=== PATIENT | female | born 1945 | race Caucasian/White ===

== ENCOUNTER 2017-08-05 07:26 | Inpatient (IN) | payer MEDICARE, OTHER ==
--- NOTE | 2017-08-05 07:38 | EDPHY ---
H & P Stated Complaint: R lower quad pain since last night, bloated Time Seen by Provider: 08/05/17 07:38 HPI/ROS: CHIEF COMPLAINT: Abdominal pain HISTORY OF PRESENT ILLNESS: This is a generally healthy 71-year-old female, former professional dancer, who presents with 24 hr of right lower quadrant abdominal pain. She has not had fever, nausea vomiting, diarrhea, dysuria, or hematuria. She does not have back pain. The pain has been "excruciating"and constant. It has not changed in location. Prior to the onset of this pain she had some generalized malaise. REVIEW OF SYSTEMS: A ten point review of systems was performed and is negative with the exception of the items mentioned in the HPI. 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 She does not use tobacco products or alcohol. She is new to this area and does not have a primary care physician. She moved here from [place], [place]. General Appearance: Alert. Vital signs reviewed. Eyes: Pupils equal and round, no conjunctival injection, no discharge. Anicteric. ENT, Mouth: Mucous membranes are moist, no oropharyngeal erythema or edema. Neck: No lymphadenopathy, supple. Respiratory: Lungs are clear to auscultation; no wheezes, rales, or rhonchi. Cardiovascular: Regular rate and rhythm; no murmur, rub, or gallop. Gastrointestinal: Abdomen is soft with RLQ tenderness and localized guarding, no masses or organomegaly, bowel sounds normal. Skin: Warm and dry, no rashes on exposed skin, normal color. Back: Nontender to palpation over the thoracolumbar spine. No CVAT. Extremities: No lower extremity edema, no calf tenderness or swelling. Neurological: Alert and oriented. Moving all four extremities easily and equally. Psychiatric: Normal affect. - Medical/Surgical History Hx Asthma: No Hx Chronic Respiratory Disease: No Hx Diabetes: No Hx Cardiac Disease: No Hx Renal Disease: No Hx Cirrhosis: No Hx Alcoholism: No Hx HIV/AIDS: No Hx Splenectomy or Spleen Trauma: No Other PMH: hypothyroid - Social History Smoking Status: Never smoked Constitutional: Initial Vital Signs Temperature (C) 36.4 C 08/05/17 07:27 Heart Rate 67 08/05/17 07:27 Respiratory Rate 16 08/05/17 07:27 Blood Pressure 120/74 08/05/17 07:27 O2 Sat (%) 97 08/05/17 07:27 O2 Delivery Mode Room Air Allergies/Adverse Reactions: ampicillin Allergy (Verified 08/05/17 07:51) Medical Decision Making - Diagnostics Imaging Results: Imaging Impressions Abdomen CT 08/05/17 08:18 Impression: 1. Acute appendicitis with appendicolith, thickening up to 15 mm and periappendiceal inflammatory changes right mid abdomen. 2. No drainable abscess, bowel obstruction, or pneumoperitoneum. 3. Two subcentimeter hepatic hypodensities, indeterminate, for which follow up is recommended. 4. Severe degenerative lumbar spine resulting in moderate to severe stenosis at L1-L2, L3-L4, and L4-L5 levels with old mild benign compression fracture of the L4 vertebral body. Consider DEXA bone scan evaluation and MRI of the lumbar spine if clinically indicated. 5. Small hiatal hernia. Findings and recommendations discussed with Emergency Department physician, Kianna Montana, at 0854 hours, 08/05/2017. Final report concurs with initial preliminary interpretation. ED Course/Re-evaluation: Based upon the location of her pain, I suspect appendicitis. I spoke with Dr. Bethany Carrera and will proceed with CT scan of the abdomen/pelvis. Kidney function is being checked along with CBC and urinalysis. This patient had a couple sips of water about 6:00 a.m. this morning, 2 hr ago, nothing overnight. She has declined pain medication. On reexamination she continues with right low lower quadrant tenderness, guarding. I reviewed her CT scan and discussed it with Dr. Maria. CT scan of the abdomen /pelvis is positive for appendicitis. Dr. Bethany Carrera in the ED at 8:55 AM to examine the patient prior to surgery. Ceftriaxone and Flagyl IV ordered. Differential Diagnosis: Abdominal pain including but not limited to appendicitis, cholecystitis, gastritis and urinary tract infection. - Data Points Laboratory Results: Laboratory Results 08/05/17 07:40 08/05/17 07:40 08/05/17 08/05/17 08/05/17 08:50 08:14 07:40 WBC RBC Hgb POC Hgb 13.6 gm/dL gm/dL (12.6-16.3) Hct POC Hct 40 % % (38-47) MCV MCH MCHC RDW Plt Count MPV Neut % (Auto) Lymph % (Auto) [place] % (Auto) Eos % (Auto) Baso % (Auto) Nucleat RBC Rel Count Absolute Neuts (auto) Absolute Lymphs (auto) Absolute Monos (auto) Absolute Eos (auto) Absolute Basos (auto) Absolute Nucleated RBC Immature Gran % Immature Gran # POC Sodium 137 mEq/L mEq/L (135-145) Sodium 138 mEq/L mEq/L (135-145) POC Potassium 3.5 mEq/L mEq/L (3.3-5.0) Potassium 3.9 mEq/L mEq/L (3.5-5.2) POC Chloride 99 mEq/L mEq/L (97-110) Chloride 101 mEq/L mEq/L (97-110) Carbon Dioxide 24 mEq/l mEq/l (22-31) Anion Gap 13 mEq/L mEq/L (8-16) POC BUN 8 mg/dL mg/dL (7-23) BUN 10 mg/dL mg/dL (7-23) Creatinine 0.5 mg/dL L mg/dL (0.6-1.0) POC Creatinine 0.5 mg/dL L mg/dL (0.6-1.0) Estimated GFR > 60 Glucose 131 mg/dL H mg/dL (70-100) POC Glucose 137 mg/dL H mg/dL (70-100) Calcium 9.4 mg/dL mg/dL (8.5-10.4) Urine Color YELLOW Urine Appearance CLEAR Urine pH 6.0 (5.0-7.5) Ur Specific Altha 1.035 H (1.002-1.030) Urine Protein NEGATIVE (NEGATIVE) Urine Ketones NEGATIVE (NEGATIVE) Urine Blood 2+ H (NEGATIVE) Urine Nitrate NEGATIVE (NEGATIVE) Urine Bilirubin NEGATIVE (NEGATIVE) Urine Urobilinogen NEGATIVE EU EU (0.2-1.0) Ur Leukocyte Esterase NEGATIVE (NEGATIVE) Urine RBC 1-3 /hpf /hpf (0-3) Urine WBC 1-3 /hpf /hpf (0-3) Ur Epithelial Cells TRACE /lpf /lpf (NONE-1+) Urine Glucose NEGATIVE (NEGATIVE) 08/05/17 07:40 WBC 16.62 10^3/uL H 10^3/uL (3.80-9.50) RBC 4.74 10^6/uL 10^6/uL (4.18-5.33) Hgb 13.9 g/dL g/dL (12.6-16.3) POC Hgb Hct 41.3 % % (38.0-47.0) POC Hct MCV 87.1 fL fL (81.5-99.8) MCH 29.3 pg pg (27.9-34.1) MCHC 33.7 g/dL g/dL (32.4-36.7) RDW 13.0 % % (11.5-15.2) Plt Count 337 10^3/uL 10^3/uL (150-400) MPV 10.6 fL fL (8.7-11.7) Neut % (Auto) 86.6 % H % (39.3-74.2) Lymph % (Auto) 8.2 % L % (15.0-45.0) [place] % (Auto) 4.4 % L % (4.5-13.0) Eos % (Auto) 0.2 % L % (0.6-7.6) Baso % (Auto) 0.2 % L % (0.3-1.7) Nucleat RBC Rel Count 0.0 % % (0.0-0.2) Absolute Neuts (auto) 14.38 10^3/uL H 10^3/uL (1.70-6.50) Absolute Lymphs (auto) 1.37 10^3/uL 10^3/uL (1.00-3.00) Absolute Monos (auto) 0.73 10^3/uL 10^3/uL (0.30-0.80) Absolute Eos (auto) 0.04 10^3/uL 10^3/uL (0.03-0.40) Absolute Basos (auto) 0.04 10^3/uL 10^3/uL (0.02-0.10) Absolute Nucleated RBC 0.00 10^3/uL 10^3/uL (0-0.01) Immature Gran % 0.4 % % (0.0-1.1) Immature Gran # 0.06 10^3/uL 10^3/uL (0.00-0.10) POC Sodium Sodium POC Potassium Potassium POC Chloride Chloride Carbon Dioxide Anion Gap POC BUN BUN Creatinine POC Creatinine Estimated GFR Glucose POC Glucose Calcium Urine Color Urine Appearance Urine pH Ur Specific Altha Urine Protein Urine Ketones Urine Blood Urine Nitrate Urine Bilirubin Urine Urobilinogen Ur Leukocyte Esterase Urine RBC Urine WBC Ur Epithelial Cells Urine Glucose Medications Given: Discontinued Medications Sodium Chloride (Ns) 1,000 mls @ 0 mls/hr IV ONCE ONE PRN Reason: Wide Open Stop: 08/05/17 08:47 Last Admin: 08/05/17 08:49 Dose: 1,000 mls Ceftriaxone Sodium/Dextrose (Rocephin 1 Gm (Premix)) 50 mls @ 100 mls/hr IV EDNOW ONE PRN Reason: Protocol Stop: 08/05/17 09:23 Last Admin: 08/05/17 09:03 Dose: 50 mls Point of Care Test Results: 08/05/17 08:14 POC Sodium 137 POC Potassium 3.5 POC Chloride 99 POC BUN 8 POC Creatinine 0.5 L POC Glucose 137 H Departure - Departure Disposition: To OP Cath/Surgery Clinical Impression: Acute appendicitis Qualifiers: Acute appendicitis type: with localized peritonitis Qualified Code(s): K35.3 - Acute appendicitis with localized peritonitis Condition: Good
[2017-08-05 08:01] LABS: PLATELET COUNT 337 10^3/uL (150-400)
[2017-08-05] MEDS ORDERED: IOPAMIDOL (ISOVUE-300) 100 ML BTL ONE (08:19)
[2017-08-05] MEDS ORDERED: NS 1,000 ML IV ONE (08:46)
[2017-08-05] MEDS ORDERED: BUPIVACAINE 0.5% 30 ML SDV ONE (09:44)
--- NOTE | 2017-08-05 09:45 | GHP ---
[f rep st] HISTORY AND PHYSICAL DATE OF ADMISSION: 08/05/2017 CHIEF COMPLAINT: Acute appendicitis. HISTORY OF PRESENT ILLNESS: 71-year-old woman who presented with 24 hours of right lower quadrant pa in. She has not ever had this type of pain before. She denies fever, nausea, vomiting, diarrhea. S he has no sick contacts. She has also felt bloated. Due to her escalating symptoms, she presented t o the emergency room. PAST MEDICAL HISTORY: Hypothyroidism. PAST SURGICAL HISTORY: Traumatic injury to right foot requiring toe amputation. 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 She denies any tobacco products. FAMILY HISTORY: Noncontributory. REVIEW OF SYSTEMS: 10-point review of systems negative except per HPI. PHYSICAL EXAMINATION: VITAL SIGNS: 36.4, 67, 120/74, 16, 97%. GENERAL: Pleasant, well-nourished, we ll-groomed woman sitting up on bed. HEENT: Normocephalic. No gross hearing deficits. Mucous membra nan moist. Pupils equal and round. No scleral icterus. LUNGS: Clear to auscultation bilaterally. No increased work of breathing. CARDIAC: Regular rate. No peripheral edema. ABDOMEN: It is warm to t he touch. Bowel sounds are present. She is soft. She is tender on the right side of her abdomen. SK IN: Warm and dry. No rashes, PSYCHIATRIC: Mood and affect normal. NEUROLOGIC: Grossly intact. LABORATORY: Results reviewed. Her white blood cell count is 16.62. Her creatinine is within normal limits. IMAGING: She had a CT scan performed which showed acute appendicitis. IMPRESSION AND PLAN: 71-year-old woman with acute appendicitis. I will take her to the operating geno for a laparoscopic appendectomy. The risks and benefits including but not limited to, stroke, hear t attack, , blood clots, infection, bleeding were discussed. I offered admission versus dischar ge home if she would find someone to stay with her, and she would like to be discharged home. She un derstands that she will not be able to participate in her usual physical activities for 2 weeks. She is going on a meditation retreat next week, also which she will unlikely be able to attend. I imagin e her diet will be limited for a few days. She will find someone to help walk her dogs. /[id number]/MODL
--- NOTE | 2017-08-05 09:49 | PDANEPAE ---
ANE History of Present Illness 71 yo female with appendicitis, abdominal pain since yesterday. ANE Past Medical History - Cardiovascular History Hx Hypertension: No Hx Arrhythmias: No - Pulmonary History Hx COPD: No Hx Asthma/Reactive Airway Disease: No Hx Oxygen in Use at Home: No - Endocrine History Hx Diabetes: No Hypothyroid: Yes Obesity: no - Renal History Hx Renal Disorders: No - Liver History Hx Hepatic Disorders: No - Neurological & Psychiatric Hx Neurological / Psychiatric History Comment: dizzy spells with sudden change in position occassionally, never seen a doctor for them - no syncope with them. Probably orthostatic hypotension. - GI History Hx Gastrointestinal Disorders: No ANE Review of Systems Review of Systems: - Systems Cardiac: Reports: lightheadedness (sometimes occurs when standing from a seated position) ANE Patient History - Allergies Allergies/Adverse Reactions: ampicillin Allergy (Verified 08/05/17 07:51) - NPO status NPO Since - Liquids (Date): 08/05/17 NPO Since - Liquids (Time): 06:00 NPO Since - Solids (Date): 08/04/17 NPO Since - Solids (Time): 18:00 - Anes Hx Anes Hx: post operative nausea - Smoking Hx Smoking Status: Never smoked Marijuana use: No - Alcohol Use Alcohol Use: None - Family Anes Hx Family Anes Hx: neg - N/A ANE Labs/Vital Signs - Labs Result Diagrams: 08/05/17 07:40 08/05/17 07:40 - Vital Signs Blood Pressure: 129/69 Heart Rate: 68 Respiratory Rate: 14 O2 Sat (%): 98 Height: 160.02 cm Weight: 58.967 kg ANE Physical Exam - Airway Mallampati Score: Class 4 - Pulmonary Pulmonary: no respiratory distress - Cardiovascular Cardiovascular: regular rate and rhythym - ASA Status ASA Status: II, E ANE Anesthesia Plan Anesthesia Plan: general endotracheal anesthesia
[2017-08-05] MEDS ORDERED: LR 1,000 ML IV ONE (09:57)
[2017-08-05] MEDS ORDERED: fentaNYL 100 MCG/2 ML INJ ONE (10:11)
[2017-08-05] MEDS ORDERED: DEXAMETHASONE 4 MG/ML VIAL ONE (10:11)
[2017-08-05] MEDS ORDERED: ROCURONIUM 50 MG/5 ML VIAL ONE (10:11)
[2017-08-05] MEDS ORDERED: LIDOCAINE 2% 100 MG/5 ML SYR ONE (10:11)
[2017-08-05] MEDS ORDERED: PROPOFOL/EMULSION 500 MG/50 ML BOTTLE IV ONE (10:12)
[2017-08-05] MEDS ORDERED: ONDANSETRON 4 MG/2 ML VIAL ONE (10:30)
[2017-08-05] MEDS ORDERED: KETOROLAC 30 MG/1 ML SDV ONE (10:30)
[2017-08-05] MEDS ORDERED: SUGAMMADEX SODIUM 200 MG/2 ML VIAL IVP ONE (11:06)
[2017-08-05] MEDS ORDERED: NALOXONE HCL 0.4 MG/ML INJ IVP PRN (11:13)
[2017-08-05] MEDS ORDERED: fentaNYL 100 MCG/2 ML INJ IVP PRN (11:13)
[2017-08-05] MEDS ORDERED: PROMETHAZINE HCL 25 MG/ML INJ IVP PRN (11:13)
[2017-08-05] MEDS ORDERED: DIAZEPAM 5 MG/ML 1 ML SYR IVP PRN (11:13)
[2017-08-05] MEDS ORDERED: ALBUTEROL 3 ML DEYVIAL IH PRN (11:13)
[2017-08-05] MEDS ORDERED: ACETAMINOPHEN 500 MG TAB PO PRN (11:13)
[2017-08-05] MEDS ORDERED: oxyCODONE IR 5 MG TAB PO PRN ×2 (11:13→11:25)
[2017-08-05] MEDS ORDERED: LR 500 ML IV PRN (11:13)
--- NOTE | 2017-08-05 11:24 | POSTOPPROG ---
Post Op Note Date of Operation: 08/05/17 Surgeon: Bethany Carrera Anesthesiologist: yvette Anesthesia: GET(General Endotracheal) Pre-op Diagnosis: acute appendicitis Post-op Diagnosis: perf cecum Indication: 71 yo with abdominal pain Procedure: lap cecectomy Findings: perforation at cecum just proximal to terminal ileum Inf/Abcess present in the surg proc area at time of surgery?: Yes Depth: Organ Space EBL: Minimal Drains: Lj Telles Specimen(s): appendix and part of cecum
[2017-08-05] MEDS ORDERED: ONDANSETRON 4 MG/2 ML VIAL IVP PRN (11:26)
--- NOTE | 2017-08-05 11:37 | POSTANESTH ---
Post Anesthetic Evaluation Cardiovascular Status: Normal, Stable Respiratory Status: Normal, Stable Level of Consciousness/Mental Status: Moderately Sleepy Pain Control: Adequate, Prn Tx Ordered Nausea/Vomiting Control: Adequate, Prn Tx Ordered Complications Possibly Related to Anesthesia: None Noted
--- NOTE | 2017-08-05 12:03 | POSTANESTH ---
Post Anesthetic Evaluation Cardiovascular Status: Normal, Stable Respiratory Status: Normal, Stable Level of Consciousness/Mental Status: Can Participate in Eval, Alert and Oriented Pain Control: Adequate, Prn Tx Ordered Nausea/Vomiting Control: Adequate, Prn Tx Ordered Complications Possibly Related to Anesthesia: None Noted
[2017-08-05] MEDS ORDERED: DIAZEPAM 5 MG/ML 1 ML SYR ONE (12:07)
[2017-08-05] MEDS: D5W 1/2 NS W/ 20 KCl/L 1,000 ML IV SCH (13:39)
[2017-08-05] MEDS: IBUPROFEN 600 MG TAB PO PRN ×2 (17:04→23:18)
--- NOTE | 2017-08-05 19:58 | GOP ---
[f rep st] OPERATIVE REPORT DATE OF OPERATION: 08/05/2017 SURGEON: Bethany Carrera MD ANESTHESIA: General. ANESTHESIOLOGIST: Sarika Hough MD PREOPERATIVE DIAGNOSIS: Acute appendicitis. POSTOPERATIVE DIAGNOSIS: Perforated cecum. PROCEDURE PERFORMED: Partial cecectomy. FINDINGS: Perforation at the cecal-appendiceal junction. SPECIMENS: Proximal cecum and appendix. ESTIMATED BLOOD LOSS: 10 cc. INDICATIONS: Karie Silva is a 71-year-old who presented with acute onset abdominal pain. She had CT scan performed that showed acute appendicitis; her white count was 16,000. DESCRIPTION OF PROCEDURE: Patient was brought into the operating room, placed supine on the table, a nd general anesthesia was administered. Her abdomen was prepped and draped in the usual sterile fash ion. I infiltrated all sites with 0.5% Marcaine prior to making incisions. I elevated her umbilicus . I made a small incision. I inserted the Veress needle. Her abdomen insufflated easily to a press ure of 15 mmHg. I placed a 5 mm trocar with a camera at this site. There were no injuries from Tiana ss needle placement. Under direct vision, I placed a 5 mm suprapubic trocar and a 10 mm trocar in th e left lower abdomen. There was omentum overlying the right abdominal sidewall. I used the Harmonic to dissect this. I identified her right colon and followed it down where it met the cecum, and in a n area that was inflamed, I observed purulent material and could see a perforation at the cecal-appen diceal junction. I performed dissection along the white line of Toldt. I dissected the appendix desi e, including the mesoappendix with the Harmonic Scalpel. I identified the terminal ileum and was abl e to protect this from harm I could identify a spot on the cecum that was just distal to the perforat ion. I used an Endo ERIC 45 blue twice to come across the base of the cecum. Hemostasis was achieved at the staple line. The proximal cecum and appendix were placed in an EndoCatch bag. They were ret rieved via the 10 mm trocar. I performed suction irrigation. I then placed a 15 round silicone drai n by the cecum. I sutured this into place with 3-0 nylon. I closed the fascia at the 10 mm trocar s ite with 0 Vicryl, closed skin with 4-0 Monocryl, Dermabond applied. She was awakened in the operati ng room, extubated, transferred to PACU in stable condition. /[id number]/MODL
[2017-08-05] MEDS: ACETAMINOPHEN 325 MG TAB PO PRN (21:31)
[2017-08-06] MEDS: IBUPROFEN 600 MG TAB PO PRN ×3 (05:14→20:02)
[2017-08-06 05:44] LABS: PLATELET COUNT 347 10^3/uL (150-400)
[2017-08-06] MEDS: D5W 1/2 NS W/ 20 KCl/L 1,000 ML IV SCH (06:36)
--- NOTE | 2017-08-06 09:05 | SOAPPROG ---
SOAP Progress Note Assessment/Plan: Assessment/Plan: 71yo F POD#1 s/p lap appy for perforated appendicitis Pain controlled without Rx IV antibiotics HERNNADEZ to suction Recheck labs tomorrow Passing flatus. Advance to regular diet Needs airline excuse Dispo: continue inpatient for IV antibiotics, pain control, obs. Seen c Dr. zaidi S: LUE uncomfortable from IV infiltration. passing small amounts of gas. Pain controlled but uncomfortable generally O: sitting in chair, comfortable, NAD LUE IV infiltrated, swollen, IV removed +BS. distended, soft, incisions CDI HERNANDEZ purulent/sanguinous fluid 08/06/17 10:44 Objective: Vital Signs Temp Pulse Resp BP Pulse Ox 36.8 C 61 17 104/55 L 90 L 08/06/17 08:00 08/06/17 08:00 08/06/17 08:00 08/06/17 08:00 08/06/17 08:00 Microbiology 08/05/17 10:52 Gram Stain - Final Other - Other Laboratory Results 08/06/17 05:30 08/05/17 08/06/17 08/07/17 05:59 05:59 05:59 Intake Total 2220 1225 Output Total 1860 Balance 360 1225 ICD10 Worksheet Patient Problems: Problems Problem Status Onset Acute appendicitis Acute
[2017-08-06] MEDS: LIOTHYRONINE SODIUM 5 MCG TAB PO SCH (09:18)
[2017-08-06] MEDS: LEVOTHYROXINE 75 MCG TAB PO SCH (09:21)
--- NOTE | 2017-08-06 15:09 | PDMN ---
Medical Necessity Medical necessity: [facility] [place]: S235 bowel surgery, colectomy, partial with or without ostomy, by Lap. 3 days: Lap cecectomy - perforation at cecum just proximal of terminal ileum with washout and drain placement
[2017-08-06] MEDS: ACETAMINOPHEN 325 MG TAB PO PRN (17:36)
[2017-08-07] MEDS: IBUPROFEN 600 MG TAB PO PRN ×4 (02:04→21:02)
[2017-08-07] MEDS: LEVOTHYROXINE 75 MCG TAB PO SCH (05:48)
[2017-08-07 06:32] LABS: PLATELET COUNT 288 10^3/uL (150-400)
[2017-08-07] MEDS: LIOTHYRONINE SODIUM 5 MCG TAB PO SCH (09:13)
[2017-08-08] MEDS: IBUPROFEN 600 MG TAB PO PRN ×2 (02:56→11:38)
[2017-08-08] MEDS: LEVOTHYROXINE 75 MCG TAB PO SCH (05:44)
[2017-08-08 06:09] LABS: PLATELET COUNT 295 10^3/uL (150-400)
--- NOTE | 2017-08-08 09:16 | SOAPPROG ---
SOAP Progress Note Assessment/Plan: Assessment: s/p perforation at cecal/appendiceal junction Improved today Bored Will consult ID to see outpatient recs Likely keep drain about 1 week S: Feeling better. Tolerating small amounts of food CTAB RRR Abdomen softer, still distended, HERNANDEZ recently emptied but clear in tubing Incisions cdi Plan: 08/08/17 09:15 Objective: Vital Signs Temp Pulse Resp BP Pulse Ox 36.9 C 87 18 98/64 L 90 L 08/08/17 03:00 08/08/17 03:00 08/08/17 03:00 08/08/17 03:00 08/08/17 03:00 Microbiology 08/05/17 10:52 Gram Stain - Final Other - Other Laboratory Results 08/08/17 05:55 08/07/17 08/08/17 08/09/17 05:59 05:59 05:59 Intake Total 3135 Output Total 1655 5 58 Balance 1480 -5 -58 ICD10 Worksheet Patient Problems: Problems Problem Status Onset Acute appendicitis Acute
--- NOTE | 2017-08-08 09:35 | SOAPPROG ---
SOAP Progress Note Assessment/Plan: Assessment/Plan: 71yo F POD#3 s/p lap appy for perforated appendicitis Pain controlled without Rx IV antibiotics - transition to PO on discharge. Appreciate ID recs HERNANDEZ to suction - will keep x 1 week Return of bowel function Regular diet Needs airline excuse Dispo: DC with HERNANDEZ drain and PO antibiotics. FU Friday for drain removal. Seen c Dr. Carrera S: Bored. Very anxious to be discharged today O: sitting in chair, comfortable, NAD +BS. less distended, soft, incisions CDI, min surrounding ecchymosis. HERNANDEZ serosanguinous fluid, not purulent Objective: Vital Signs Temp Pulse Resp BP Pulse Ox 36.9 C 87 18 98/64 L 90 L 08/08/17 03:00 08/08/17 03:00 08/08/17 03:00 08/08/17 03:00 08/08/17 03:00 Microbiology 08/05/17 10:52 Gram Stain - Final Other - Other Laboratory Results 08/08/17 05:55 08/07/17 08/08/17 08/09/17 05:59 05:59 05:59 Intake Total 3135 Output Total 1655 5 58 Balance 1480 -5 -58 ICD10 Worksheet Patient Problems: Problems Problem Status Onset Acute appendicitis Acute
[2017-08-08] MEDS: LIOTHYRONINE SODIUM 5 MCG TAB PO SCH (09:41)
--- NOTE | 2017-08-08 10:02 | GDS ---
[f rep st] DISCHARGE SUMMARY PRIMARY DIAGNOSIS: Ruptured appendicitis. SECONDARY DIAGNOSIS: Hypothyroidism. REASON FOR ADMISSION: The patient is a 71-year-old woman who presented to the emergency room complai roldan of less than 24 hours of localized right lower quadrant pain. She had a CT scan performed in [facility] emergency room, which showed acute appendicitis with an appendicolith and periappendiceal inflammat ion. She was admitted for surgical intervention, pain control, and observation. HOSPITAL COURSE: She was taken to the operating room by Dr. Bethany Carrera on 08/05/2017. At the time of surgery, her appendix was found to be ruptured at the cecum. Her final procedure was a laparoscop ic cecectomy with appendectomy. She had a HERNANDEZ drain placed. She was continued on IV antibiotics post operatively of ceftriaxone and Flagyl. Final pathology from the surgery revealed acute appendicitis with perforation; no malignancy. On postoperative day #3, the patient had received 3 days of IV anti biotics. Her pain was controlled without prescription pain medication. She was tolerating regular d iet, had full return of bowel function, and was ambulating independently. She was seen by Infectious Disease on postoperative day #3 who gave recommendations for outpatient oral antibiotic therapy. kofi was ready for discharge. CONDITION: She is being discharged home in stable condition. Pain is controlled with oral pain medi cation, tolerating regular diet, and ambulating independently. DISCHARGE MEDICATIONS: She was sent home with prescriptions for Levaquin and Flagyl. She was instru cted to resume home medicines; please see EMR for further detail. DISCHARGE INSTRUCTIONS AND FOLLOWUP: She will follow up with Elda Rocha PA-C , on Friday for in removal. She will empty and record HERNANDEZ drain output daily. She may shower. She will avoid heavy lifting, pushing, or pulling greater than 10 pounds for 2 weeks. She understands to call with any wo rsening symptoms, questions, or concerns. /[id number]/MODL
[2017-08-08 10:34] VITALS: BP 106/74
--- NOTE | 2017-08-09 10:08 | GCON ---
[f rep st] CONSULTATION LATE ENTRY INPATIENT INFECTIOUS DISEASE CONSULT DATE OF CONSULTATION: 08/08/2017 REFERRING PHYSICIAN: Bethany Carrera MD REASON FOR REFERRAL: Appendicitis with rupture. HISTORY OF PRESENT ILLNESS: Patient is a 71-year-old female, who presented to [facility] on 08/05/2017, complaining of some diffuse abdominal pain. This pain did tend to t he right side. The pain has increased over the preceding 24 hours. She was evaluated with an abdomi nal pelvic CT, which confirmed diagnosis of appendicitis. Patient was taken the same day to the [facility] ating room, where Dr. Lakhani removed the appendix, and discovered a perforation at the cecal appendice al junction. She also performed a partial cecectomy. The patient was managed on IV ceftriaxone and Flagyl. She had no difficulties with these medications. We are consulted to help [facility]. Currently, the patient is feeling very well. She is up and moving around her room. She is dressed in street clothes. She denies any fevers or chills. She notes that this is o ne of the few times in her life she has ever been in the hospital. PAST MEDICAL HISTORY: Hypothyroidism. PAST SURGICAL HISTORY: 1. As above. 2. Toe amputation, right foot, following a traumatic injury. ANTIBIOTICS: 1. Ceftriaxone. 2. Flagyl. ALLERGIES: Patient is allergic to ampicillin. SOCIAL HISTORY: The patient teaches ballet, tiffanie chi and yoga. No significant tobacco, alcohol, or d rug use noted. FAMILY HISTORY: Noncontributory. REVIEW OF SYSTEMS: Except for that detailed above in history of present illness, comprehensive 10-sy stem review is negative. PHYSICAL EXAMINATION: VITAL SIGNS: Temperature maximum is 36.9, temperature current is 36.4, heart rate is 77, respiratory rate is 14, blood pressure is 102/59. GENERAL: The patient is a well-formed , well-nourished, older female, in no acute distress. She is not toxic in appearance. She is alert and oriented x3. She has a pleasant demeanor. HEENT: Normocephalic for age. Atraumatic. No scler al icterus. No drainage from the nares. Eyes, lids and conjunctivae are within normal limits. Pupils are equal and round bilaterally. NECK: Supple. No meningismus. LUNGS: Clear to auscultation bilaterally, with good effort. HEART: Reg ular rate and rhythm. No significant peripheral edema. SKIN: Warm and dry to the touch. No rash o r lesion noted. MUSCULOSKELETAL: No muscle belly tenderness is noted. No joint line effusion or ar thritis is seen. NEURO: Cranial nerves 2-12 seem to be intact. Peripheral sensation seems intact i n extremities. LABORATORY DATA: The patient has a CBC dated 08/08/2017, shows a white blood cell count of 11.8, hem oglobin of 12.3, hematocrit 37.9, and a platelet count of 295. Differential is left-shifted with 89% segmented neutrophils. Serum chemistries on 08/05/2017, show sodium of 138, potassium 3.9, chloride of 101, bicarbonate 24, BUN of 10, and creatinine of 0.5. MICROBIOLOGIC DATA: Patient has operative samples from the appendix and cecal area from 08/05/2017, which are growing 2 isolates, Pseudomonas species, which is pansensitive to typical antipseudomonal d rugs, and E coli which is pansensitive to all drugs tested. ASSESSMENT: Ruptured appendicitis, status post appendectomy with partial cecectomy. The patient marzena ears to be clinically recovering quite rapidly. She tolerated the ceftriaxone and Flagyl. Given the sensitivity panel of both the Pseudomonas and the E coli, the patient could transfer to 750 mg of Le vaquin orally a day, with 500 mg orally 3 times a day. I think a total duration of treatment will be 10 days. PLAN: 1. Antibiotics for home, as above. 2. Follow up as needed. /[id number]/MODL
== END 2017-08-08 12:00 | disposition home or self-care (01) | DRG 340 ==
LOC: OBSVTOIN 09:01 → FOB 13:15
PROVIDERS: ADMIT Surgery; ATTEND Surgery
PROC: 0DTJ4ZZ Resection of Appendix, Percutaneous Endoscopic Approach (ICD-10-PCS; principal; 2017-08-05 10:15)
DX: K35.2 Acute appendicitis with generalized peritonitis (principal); E03.9 Hypothyroidism, unspecified; M51.36 Other intervertebral disc degeneration, lumbar region; Z89.429 Acquired absence of other toe(s), unspecified side; Z87.81 Personal history of (healed) traumatic fracture
CPT/HCPCS: 82947-QW; 96365; G0378; J0696; J1100; J1885; J2001; J2270; J2405; J2704; J3010; J3360; Q9967

== ENCOUNTER 2017-08-10 00:50 | Inpatient (IN) | payer OTHER ==
[2017-08-10] MEDS ORDERED: NS 1,000 ML IV ONE (01:26)
[2017-08-10] MEDS ORDERED: ONDANSETRON 4 MG/2 ML VIAL IVP ONE (01:26)
[2017-08-10] MEDS ORDERED: FAMOTIDINE 20 MG/NACL 50 ML IV ONE (01:26)
--- NOTE | 2017-08-10 01:31 | EDPHY ---
H & P Stated Complaint: srg - ruptured cecum 5.1, c/o bloat/n/v/d sat, bloody emesis, increase o/p Time Seen by Provider: 08/10/17 01:05 HPI/ROS: HPI The patient presents with vomiting, abdominal distension for the last 1 day which is getting progressively worse. She is postoperative day 6. From laparoscopic appendectomy and partial cecectomy for ruptured appendicitis at the cecal appendiceal junction performed by Dr. Carrera. She left the hospital approximately 36 hr ago and felt well upon discharge. Last night she said she began to feel worse. She is taking ibuprofen every 6 hr for pain and feels that her pain is minimal. She did notice that her abdomen is more distended than usual. Since 2:00 p.m. She has had vomiting which is slightly blood tinged. She has no appetite and has been unable to take anything by mouth. She is having loose bowel movements though her last stool was firm. She has a HERNANDEZ drain in place which is draining a small amount of serous fluid. REVIEW OF SYSTEMS Constitutional: No fever, no chills. Eyes: No discharge. ENT: No sore throat. Cardiovascular: No chest pain, no palpitations. Respiratory: No cough, no shortness of breath. Gastrointestinal: No abdominal pain, no vomiting. Genitourinary: No hematuria. Musculoskeletal: No back pain. Skin: No rashes. Neurological: No headache. PMHx: As above, history of right toe amputation Soc Hx: Recently moved to [place] after living in [place] for 20 years PHYSICAL General Appearance: Alert, no distress Eyes: Pupils equal and round no pallor or injection ENT, Mouth: Mucous membranes dry Respiratory: There are no retractions, lungs are clear to auscultation Cardiovascular: Regular rate and rhythm Gastrointestinal: Abdomen is distended and mildly tender in all quadrants without rebound or guarding, HERNANDEZ drain is in place draining clear fluid Neurological: A&O, moves all extremities Skin: Warm and dry, no rashes Musculoskeletal: Neck is supple non tender Extremities: symmetrical, full range of motion Psychiatric: Patient is oriented X 3, there is no agitation Source: Patient Exam Limitations: No limitations - Medical/Surgical History Hx Asthma: No Hx Chronic Respiratory Disease: No Hx Diabetes: No Hx Cardiac Disease: No Hx Renal Disease: No Hx Cirrhosis: No Hx Alcoholism: No Hx HIV/AIDS: No Hx Splenectomy or Spleen Trauma: No Other PMH: hypothyroid, traumatic amp of toes R foot, ruptured cecum - surg 5..18 - Social History Smoking Status: Never smoked Constitutional: Initial Vital Signs Temperature (C) 37 C 08/10/17 00:54 Heart Rate 98 08/10/17 00:54 Respiratory Rate 18 08/10/17 00:54 Blood Pressure 131/97 H 08/10/17 00:54 O2 Sat (%) 93 08/10/17 00:54 O2 Delivery Mode Room Air O2 (L/minute) 2 Allergies/Adverse Reactions: ampicillin Allergy (Verified 08/10/17 01:02) Vomiting Home Medications: Medication Instructions Recorded Herbals/Supplements -Info Only 1 ea PO DAILY 08/05/17 Levothyroxine [Synthroid 75 mcg 75 mcg PO DAILY06 08/05/17 (*)] Liothyronine Sodium [Cytomel 5 mcg 5 mcg PO DAILY 08/05/17 (*)] Acetaminophen [Tylenol 325mg (*)] 650 mg PO Q4HRS PRN tab 08/08/17 Ibuprofen [Motrin (*)] 600 mg PO Q6HRS PRN tab 08/08/17 levOFLOXACIN [levAQUIN (*)] 750 mg PO DAILY 7 Days tab 08/08/17 metroNIDAZOLE [Flagyl 500 mg (*)] 500 mg PO TID 7 Days tab 08/08/17 Medical Decision Making - Diagnostics Imaging Results: CT abdomen pelvis demonstrates high-grade small-bowel obstruction, discussed with Dr. Maria of Radiology. Imaging: I viewed and interpreted images myself Differential Diagnosis: This is a 71-year-old female, postoperative day 6. From appendectomy with partial cecetomy for ruptured appendicitis, now with increasing abdominal distention, nausea and vomiting. On exam, vital signs normal, she is generally and uncomfortable appearing, she has a distended abdomen which is slightly tender to palpation in all quadrants. Differential diagnosis includes small bowel obstruction, intra-abdominal infection, intra-abdominal hematoma. In the emergency department, patient received fluids, antiemetics, pain medication. Labs were checked and demonstrated slight leukocytosis as compared to previous labs. CT scan of her abdomen demonstrated high-grade small-bowel obstruction. She had no ongoing vomiting here. I discussed the case with Dr. Cook our on-call for Dr. Carrera. He will admit the patient to his service. We will hold off on NG tube for now. I explained the diagnosis and treatment plan with the patient. - Data Points Laboratory Results: Laboratory Results 08/10/17 01:30 08/10/17 01:30 08/10/17 08/10/17 01:30 01:30 WBC 13.16 10^3/uL H 10^3/uL (3.80-9.50) RBC 4.58 10^6/uL 10^6/uL (4.18-5.33) Hgb 13.3 g/dL g/dL (12.6-16.3) Hct 39.7 % % (38.0-47.0) MCV 86.7 fL fL (81.5-99.8) MCH 29.0 pg pg (27.9-34.1) MCHC 33.5 g/dL g/dL (32.4-36.7) RDW 13.9 % % (11.5-15.2) Plt Count 388 10^3/uL 10^3/uL (150-400) MPV 10.1 fL fL (8.7-11.7) Neut % (Auto) 87.9 % H % (39.3-74.2) Lymph % (Auto) 6.5 % L % (15.0-45.0) [place] % (Auto) 4.2 % L % (4.5-13.0) Eos % (Auto) 0.2 % L % (0.6-7.6) Baso % (Auto) 0.2 % L % (0.3-1.7) Nucleat RBC Rel Count 0.0 % % (0.0-0.2) Absolute Neuts (auto) 11.58 10^3/uL H 10^3/uL (1.70-6.50) Absolute Lymphs (auto) 0.85 10^3/uL L 10^3/uL (1.00-3.00) Absolute Monos (auto) 0.55 10^3/uL 10^3/uL (0.30-0.80) Absolute Eos (auto) 0.02 10^3/uL L 10^3/uL (0.03-0.40) Absolute Basos (auto) 0.03 10^3/uL 10^3/uL (0.02-0.10) Absolute Nucleated RBC 0.00 10^3/uL 10^3/uL (0-0.01) Immature Gran % 1.0 % % (0.0-1.1) Immature Gran # 0.13 10^3/uL H 10^3/uL (0.00-0.10) Sodium 137 mEq/L mEq/L (135-145) Potassium 4.1 mEq/L mEq/L (3.5-5.2) Chloride 102 mEq/L mEq/L (97-110) Carbon Dioxide 19 mEq/l L mEq/l (22-31) Anion Gap 16 mEq/L mEq/L (8-16) BUN 15 mg/dL mg/dL (7-23) Creatinine 0.5 mg/dL L mg/dL (0.6-1.0) Estimated GFR > 60 Glucose 147 mg/dL H mg/dL (70-100) Calcium 8.6 mg/dL mg/dL (8.5-10.4) Total Bilirubin 0.8 mg/dL mg/dL (0.1-1.4) AST 22 IU/L IU/L (14-46) ALT 25 IU/L IU/L (9-52) Alkaline Phosphatase 70 IU/L IU/L (38-126) Total Protein 5.7 g/dL L g/dL (6.3-8.2) Albumin 3.0 g/dL L g/dL (3.5-5.0) Medications Given: Hydromorphone HCl (Dilaudid) 0.2 - 0.4 mg IVP Q2HRS PRN PRN Reason: Pain, Severe Unable to Take PO Stop: 08/20/17 02:44 Last Admin: 08/10/17 03:01 Dose: 0.4 mg Sodium Chloride (Ns) 1,000 mls @ 100 mls/hr IV CONT BAL Stop: 02/06/18 02:44 Last Admin: 08/10/17 04:37 Dose: 1,000 mls Discontinued Medications Sodium Chloride (Ns) 1,000 mls @ 0 mls/hr IV EDNOW ONE; Wide Open PRN Reason: Protocol Stop: 08/10/17 01:27 Last Admin: 08/10/17 01:37 Dose: 1,000 mls Famotidine/Sodium Chloride (Pepcid 20 Mg (Premix)) 50 mls @ 200 mls/hr IV EDNOW ONE Stop: 08/10/17 01:40 Last Admin: 08/10/17 01:38 Dose: 50 mls Ondansetron HCl (Zofran) 4 mg IVP EDNOW ONE Stop: 08/10/17 01:27 Last Admin: 08/10/17 01:38 Dose: 4 mg Departure - Departure Disposition: [facility]
[2017-08-10] MEDS ORDERED: IOPAMIDOL (ISOVUE-300) 100 ML BTL ONE (01:33)
[2017-08-10 01:45] LABS: PLATELET COUNT 388 10^3/uL (150-400)
[2017-08-10] MEDS ORDERED: HYDROmorphONE/DILAUDID 1 MG/ML INJ IVP PRN (02:45)
[2017-08-10] MEDS ORDERED: PROMETHAZINE HCL 25 MG/ML INJ IVP PRN (02:45)
[2017-08-10] MEDS ORDERED: ACETAMINOPHEN 325 MG TAB PO PRN (02:45)
[2017-08-10] MEDS ORDERED: ONDANSETRON DISINTEGRATING 4 MG TAB PO PRN (02:45)
[2017-08-10] MEDS ORDERED: HYDROmorphONE/DILAUDID 2 MG/ML INJ ONE (02:55)
[2017-08-10] MEDS: NS 1,000 ML IV SCH ×2 (04:37→17:05)
--- NOTE | 2017-08-10 07:23 | PDGENHP ---
History and Physical - Chief Complaint abdominal pain, nausea and vomiting - History of Present Illness 71yo F s/p appendectomy and partial cecectomy for perforated appendicitis on 08/05. Was subsequently sent home late last week feeling well. States that yesterday had some abdominal bloating which progressed to nausea and vomiting assocaited with pain. The pain is described as diffuse, worse with PO intake and palpation, better with rest and 6/10 in intensity. She endorses subjective fevers but denies chills. She states that her last BM was yesterday and that she hasn't passed flatus in 24hrs. History Information - Allergies/Home Medication List Allergies/Adverse Reactions: ampicillin Allergy (Verified 08/10/17 01:02) Vomiting Home Medications: Herbals/Supplements -Info Only 1 ea PO DAILY 08/05/17 [Last Taken Unknown] Levothyroxine [Synthroid 75 mcg (*)] 75 mcg PO DAILY06 08/05/17 [Last Taken 04/24] Liothyronine Sodium [Cytomel 5 mcg (*)] 5 mcg PO DAILY 08/05/17 [Last Taken ] I have personally reviewed and updated: medical history, social history, surgical history Past Medical History: thyroid - Surgical History Additional surgical history: appendectomy with partial cecectomy - Family History Positive for: non-pertinent - Social History Smoking Status: Never smoked Alcohol Use: None Additional social history: yoga, dance. Review of Systems Review of Systems: ROS: 10pt was reviewed & negative except for what was stated in HPI & below Physical Exam Physical Exam: Temp Pulse Resp BP Pulse Ox 36.6 C 79 16 128/68 H 92 08/10/17 04:04 08/10/17 04:04 08/10/17 04:04 08/10/17 04:04 08/10/17 04:04 O2 (L/minute) 2 Constitutional: no apparent distress, appears nourished, not in pain Eyes: PERRL, anicteric sclera, EOMI Ears, Nose, Mouth, Throat: moist mucous membranes, hearing normal, ears appear normal, no oral mucosal ulcers Cardiovascular: regular rate and rhythym, no murmur, rub, or gallop, No edema Respiratory: no respiratory distress, no rales or rhonchi, clear to auscultation Gastrointestinal: other (soft, minimally distended, hypoactive bowel sounds. HERNANDEZ serosang) Genitourinary: no bladder fullness, no bladder tenderness Skin: warm, normal color, no rashes or abrasions, no fluctuance, no induration, No mottled Musculoskeletal: full muscle strength, no muscle tenderness, normal joint ROM, no joint effusions Psychiatric: interacting appropriately, not anxious, not encephalopathic, thought process linear Lymph, Heme, Immunologic: no cervical LAD, no supraclavicular LAD Lab Data & Imaging Review 08/10/17 01:30 08/10/17 01:30 WBC 13.16 10^3/uL (3.80-9.50) H 08/10/17 01:30 RBC 4.58 10^6/uL (4.18-5.33) 08/10/17 01:30 Hgb 13.3 g/dL (12.6-16.3) 08/10/17 01:30 Hct 39.7 % (38.0-47.0) 08/10/17 01:30 MCV 86.7 fL (81.5-99.8) 08/10/17 01:30 MCH 29.0 pg (27.9-34.1) 08/10/17 01:30 MCHC 33.5 g/dL (32.4-36.7) 08/10/17 01:30 RDW 13.9 % (11.5-15.2) 08/10/17 01:30 Plt Count 388 10^3/uL (150-400) 08/10/17 01:30 MPV 10.1 fL (8.7-11.7) 08/10/17 01:30 Neut % (Auto) 87.9 % (39.3-74.2) H 08/10/17 01:30 Lymph % (Auto) 6.5 % (15.0-45.0) L 08/10/17 01:30 [place] % (Auto) 4.2 % (4.5-13.0) L 08/10/17 01:30 Eos % (Auto) 0.2 % (0.6-7.6) L 08/10/17 01:30 Baso % (Auto) 0.2 % (0.3-1.7) L 08/10/17 01:30 Nucleat RBC Rel Count 0.0 % (0.0-0.2) 08/10/17 01:30 Absolute Neuts (auto) 11.58 10^3/uL (1.70-6.50) H 08/10/17 01:30 Absolute Lymphs (auto) 0.85 10^3/uL (1.00-3.00) L 08/10/17 01:30 Absolute Monos (auto) 0.55 10^3/uL (0.30-0.80) 08/10/17 01:30 Absolute Eos (auto) 0.02 10^3/uL (0.03-0.40) L 08/10/17 01:30 Absolute Basos (auto) 0.03 10^3/uL (0.02-0.10) 08/10/17 01:30 Absolute Nucleated RBC 0.00 10^3/uL (0-0.01) 08/10/17 01:30 Immature Gran % 1.0 % (0.0-1.1) 08/10/17 01:30 Immature Gran # 0.13 10^3/uL (0.00-0.10) H 08/10/17 01:30 Sodium 137 mEq/L (135-145) 08/10/17 01:30 Potassium 4.1 mEq/L (3.5-5.2) 08/10/17 01:30 Chloride 102 mEq/L (97-110) 08/10/17 01:30 Carbon Dioxide 19 mEq/l (22-31) L 08/10/17 01:30 Anion Gap 16 mEq/L (8-16) 08/10/17 01:30 BUN 15 mg/dL (7-23) 08/10/17 01:30 Creatinine 0.5 mg/dL (0.6-1.0) L 08/10/17 01:30 Estimated GFR > 60 08/10/17 01:30 Glucose 147 mg/dL (70-100) H 08/10/17 01:30 Calcium 8.6 mg/dL (8.5-10.4) 08/10/17 01:30 Total Bilirubin 0.8 mg/dL (0.1-1.4) 08/10/17 01:30 AST 22 IU/L (14-46) 08/10/17 01:30 ALT 25 IU/L (9-52) 08/10/17 01:30 Alkaline Phosphatase 70 IU/L (38-126) 08/10/17 01:30 Total Protein 5.7 g/dL (6.3-8.2) L 08/10/17 01:30 Albumin 3.0 g/dL (3.5-5.0) L 08/10/17 01:30 Visualized and Interpreted imaging results: Yes Interpretation: CT: SBO, some inflammation in RLQ, no free air or fluid. Assessment & Plan Assessment: 71yo female with SBO Plan: discussed the patients imaging with her. Clinically, her abdominal distention is improved, she has bowel sounds albeit hypoactive. Discussed bowel rest, ambulation, hydration and time. Will cont to clinically evaluate, no worrisome signs at this time. Will cont abd per her outpatient regimen.
--- NOTE | 2017-08-10 07:46 | PDMN ---
Medical Necessity Medical necessity: C/M review: Patient meets INPT criteria under MCG M-210 Intestinal Obstruction: Acute small bowel obstruction, some inflammation in RLQ, no free air or fluid seen on CT, abdominal bloating, nausea, vomiting, abdominal pain requiring ongoing NPO, IV NS 100 ml/hr. infusion, IV Levaquin QD , IV Flagyl Q 8 hrs., IV Dilaudid, comorbid 08/05/2017 appendectomy and partial cecetomy for perforated appendicitis. anticipates > 2 MN LOS for ongoing med nec for eval and TX of above. Patient is Medicare Advantage which follows guidelines CMS puts forth.
[2017-08-10] MEDS: HYDROmorphone HCL/NS 0.5 MG/ML SYR IVP PRN ×3 (09:28→21:45)
[2017-08-10] MEDS: levOFLOXACIN 500 MG/DEXTROSE 100 ML IV SCH (09:29)
--- NOTE | 2017-08-10 16:28 | ASMTCMCOM ---
CM Note CM Note Notes: CM chart review. Patient admitted via ED, was see presented with vomiting and abdominal distention. Pt was d/c'd on 08/08/17 after tx for ruptured appendicitis. Per floor nurse, pt is currently being treated with antibiotics and for pain. Discharge plan likely independent in a day or two. CM to follow and is available for further CM needs. Current d/c plan: d/c date tbd, home independent. Date Signed: 08/10/2017 04:28 PM Electronically Signed By:Ramila Ramirez
[2017-08-11] MEDS: NS 1,000 ML IV SCH ×2 (03:13→18:37)
[2017-08-11] MEDS: HYDROmorphone HCL/NS 0.5 MG/ML SYR IVP PRN (03:29)
[2017-08-11 04:54] LABS: PLATELET COUNT 372 10^3/uL (150-400)
[2017-08-11] MEDS: LEVOTHYROXINE 75 MCG TAB PO SCH (06:17)
[2017-08-11] MEDS: LIOTHYRONINE SODIUM 5 MCG TAB PO SCH (09:20)
[2017-08-11] MEDS: levOFLOXACIN 500 MG/DEXTROSE 100 ML IV SCH (10:49)
--- NOTE | 2017-08-11 11:04 | SOAPPROG ---
SOAP Progress Note Assessment/Plan: Assessment/Plan: 71yo F s/p lap appy and partial cecectomy for perforated appendicitis. Admitted with SBO IV antibiotics and fluids NPO. Bowel rest HERNANDEZ to suction Dispo: continue inpatient until return of bowel function S: She is very disappointed about readmission. No nausea. No pain. O: Lying in bed, comfortable, no acute distress No increased work of breathing Hypoactive bowel sounds throughout, soft, nondistended, nontender. Incisions clean, dry and intact. HERNANDEZ drain serous Objective: Vital Signs Temp Pulse Resp BP Pulse Ox 37.0 C 76 16 141/70 H 91 L 08/11/17 07:58 08/11/17 07:58 08/11/17 07:58 08/11/17 07:58 08/11/17 07:58 Laboratory Results 08/11/17 04:21 08/11/17 04:21 08/10/17 08/11/17 08/12/17 05:59 05:59 05:59 Intake Total 1000 1896 Output Total 25 765 20 Balance 975 -765 1876 ICD10 Worksheet Patient Problems: Problems Problem Status Onset Acute appendicitis Acute
[2017-08-11] MEDS: KETOROLAC 15 MG/1 ML SDV IVP SCH ×2 (17:22→22:13)
[2017-08-11] MEDS: ONDANSETRON 4 MG/2 ML VIAL IVP PRN (22:26)
[2017-08-12] MEDS: HYDROmorphone HCL/NS 0.5 MG/ML SYR IVP PRN ×2 (01:09→21:43)
[2017-08-12] MEDS: LEVOTHYROXINE 75 MCG TAB PO SCH (05:51)
[2017-08-12] MEDS: KETOROLAC 15 MG/1 ML SDV IVP SCH ×5 (05:52→21:35)
[2017-08-12] MEDS: NS 1,000 ML IV SCH (05:59)
[2017-08-12] MEDS ORDERED: POLYETHYLENE GLYCOL 3350 17 GM PKT PO PRN (08:48)
[2017-08-12] MEDS ORDERED: LACTULOSE 20 GM/30 ML UDCUP PO PRN (08:48)
[2017-08-12] MEDS ORDERED: MAGNESIUM HYDROXIDE 30 ML UDCUP PO PRN (08:48)
[2017-08-12] MEDS ORDERED: BISACODYL 10 MG SUPP PR PRN (08:48)
--- NOTE | 2017-08-12 08:49 | SOAPPROG ---
SOAP Progress Note Assessment/Plan: Assessment/Plan: 71yo F s/p lap appy and partial cecectomy for perforated appendicitis. Admitted with SBO IV antibiotics - pt having difficulty with IV flagyl. Will consult ID. Start bowel protocol NPO - may have 8oz q8h HERNANDEZ removed Dispo: continue inpatient until return of bowel function. Seen c Dr. Carrera. S: nausea after iv flagyl. feels bad from antibiotics. passing gas O: sitting upright in chair, comfortable, NAD Decreased breath sounds RLL HERNANDEZ drain serous - removed without difficulty. Incisions CDI Objective: Vital Signs Temp Pulse Resp BP Pulse Ox 36.8 C 80 16 126/60 H 90 L 08/12/17 07:29 08/12/17 07:29 08/12/17 07:29 08/12/17 07:29 08/12/17 07:29 Laboratory Results 08/11/17 04:21 08/11/17 04:21 08/11/17 08/12/17 08/13/17 05:59 05:59 05:59 Intake Total 3977 Output Total 765 1250 205 Balance -765 2727 -205 ICD10 Worksheet Patient Problems: Problems Problem Status Onset Acute appendicitis Acute
[2017-08-12] MEDS ORDERED: D5W 1/2 NS W/ 20 KCl/L 1,000 ML IV SCH (09:00)
[2017-08-12] MEDS: LIOTHYRONINE SODIUM 5 MCG TAB PO SCH (09:53)
[2017-08-12] MEDS: SENNOSIDES/DOCUSATE SODIUM TAB PO SCH ×2 (09:53→21:42)
[2017-08-12] MEDS: levOFLOXACIN 500 MG/DEXTROSE 100 ML IV SCH (09:57)
[2017-08-12] MEDS: D5W 1/2 NS 1,000 ML IV SCH (13:46)
--- NOTE | 2017-08-12 13:51 | PCMIDPN ---
Assessment/Plan: Assessment/Plan: 1. Perforated cecal-appendiceal jx s/p cecetomy: - Surgery was on 08/05/17 - Has completed 8 days of therapy so far of the initial 10 days plan of treatment per Dr. Muro's consult - Here with SBo now. ABd Ct reviewed: nonspecific small fluid collection measuring 2.4 x 1.5 cm -seroma vs early abscess -Given patient's intolerances to flagyl and now refusing to take, will change to Merem to complete therapy - will add CRP - plan of care reviewed with patient - care coordinated with surgery 2. Ampicillin allergy: - asked patient to clarify. She can't remember what type of reaction she had -she tolerated ceftriaxone during previous admit last week Meds levaquin + flagyl Subjective: Asked to reconsult on patient due to antibiotic intolerances. Records/cultures/ images reviewed. See Dr. Muro's consult form 08/08/17. IN brief, patient admitted last week with perforated cecal-appendiceal junction, s/p cecetomy. Operative note reviewed, pus noted. Cultures with Pseudomonas and E. coli. Patient was initially o Ceftriaxone + flagyl and then changed to levaquin + flagyl to complete as OP. Patients states she has felt nauseous and felt like vomiting each time after taking flagyl, even after her IV doses here. She refused her morning dose. afebrile. c/o abd discomfort. restless in the hospital , wants to get back to doing yoga etc. SHe denies sob. Objective: Vital Signs Temp Pulse Resp BP Pulse Ox 36.8 C 82 18 132/72 H 89 L 08/12/17 07:29 08/12/17 13:05 08/12/17 13:05 08/12/17 13:05 08/12/17 13:05 Laboratory Results 08/11/17 04:21 08/11/17 04:21 08/11/17 08/12/17 08/13/17 05:59 05:59 05:59 Intake Total 3977 250 Output Total 761 3120 405 Balance -765 8908 -155 - Physical Exam General Appearance: alert, no apparent distress Respiratory: lungs clear Cardiac/Chest: regular rate, rhythm Extremities: other (mild onychomyosis left left great toe nail), No swelling Abdomen: other (trickle BS, distended, tender to palpate. lower abd previous drain site with suture-mild serous drainage noted. ) Skin: No erythema - Time Spent With Patient Time Spent with Patient: greater than 35 minutes Time Spent with Patient: Greater than 35 minutes spent on this patients care, greater than 50% of time spent counseling, educating, and coordinating care regarding the above mentioned plan. ICD10 Worksheet Patient Problems: Problems Problem Status Onset Acute appendicitis Acute
[2017-08-12] MEDS: MEROPENEM 1 GM in NS 100 ML IV SCH ×2 (15:48→21:42)
[2017-08-12] MEDS: ONDANSETRON 4 MG/2 ML VIAL IVP PRN (21:42)
[2017-08-13] MEDS: KETOROLAC 15 MG/1 ML SDV IVP SCH ×4 (05:32→22:20)
[2017-08-13] MEDS: LEVOTHYROXINE 75 MCG TAB PO SCH (06:05)
[2017-08-13] MEDS: MEROPENEM 1 GM in NS 100 ML IV SCH ×3 (06:05→21:38)
[2017-08-13] MEDS: LIOTHYRONINE SODIUM 5 MCG TAB PO SCH (08:47)
[2017-08-13] MEDS: SENNOSIDES/DOCUSATE SODIUM TAB PO SCH ×2 (08:47→21:38)
--- NOTE | 2017-08-13 09:27 | SOAPPROG ---
SOAP Progress Note Assessment/Plan: Assessment/Plan: 71yo F s/p lap appy and partial cecectomy for perforated appendicitis. Admitted with SBO IV antibiotics - tolerating meropenem - appreciate ID. Labs stable today Bowel protocol Flatus. No BM. Limited clear liquids - 8oz q8h Dispo: continue inpatient until return of bowel function. Seen c Dr. Carrera. S: passing gas. bloating improved. no abdominal pain. no bowel movement. no issues with new antibiotics O: sitting upright in chair, comfortable, NAD No increased WOB Incisions CDI Dressings in place Decreased bowel sounds, soft, less distended, nontender. Objective: Vital Signs Temp Pulse Resp BP Pulse Ox 37.1 C 70 18 116/61 90 L 08/13/17 07:10 08/13/17 07:10 08/13/17 07:10 08/13/17 07:10 08/13/17 07:10 Laboratory Results 08/13/17 05:05 08/12/17 08/13/17 08/14/17 05:59 05:59 05:59 Intake Total 9653 7080 Output Total 9968 5469 Balance 2727 -1015 ICD10 Worksheet Patient Problems: Problems Problem Status Onset Acute appendicitis Acute
[2017-08-13 09:35] LABS: PLATELET COUNT 424 10^3/uL (150-400)
[2017-08-13] MEDS: POTASSIUM Cl (KCl) 100 ML IV SCH ×2 (11:21→13:14)
--- NOTE | 2017-08-13 13:11 | PCMIDPN ---
Assessment/Plan: Perforated Cecum/peritonitis with cultures showing PsA and Ecoli. Patient s/p lap cecectomy 08/05/17. Patient discharged on FQ and Flagyl and returned after 1 night at home and found to have SBO and small pelvic collection 2.4 x 1.5cm. Initially got ceftriaxone + flagyl post op but when PsA ID'd she rec'd levoflox. Patient did not tolerate PO flagyl. Slight less abdominal distension today but WBC unchanged and platelets trending up.AF --if continues to be slow to improve from SBO, would repeat CT scan to evaluate for enlarging abscess --duration of abx therapy undetermined at this point until more clinical improvement meds meropenem 1gm IV q8, #1 Cr 0.5 Microbiology 08/05/17 10:52 Other - Other Anaerobic Culture - Final Pseudomonas Species - Morgan-S Escherichia Coli Morgan-S Subjective: patient has not had antibiotic for 30 years, concerned we are ruining everything anxious for discharge does not want another surgery no BM +flatus Objective: Vital Signs Temp Pulse Resp BP Pulse Ox 36.8 C 66 18 126/93 H 88 L 08/13/17 11:55 08/13/17 11:55 08/13/17 11:55 08/13/17 11:55 08/13/17 11:55 Laboratory Results 08/13/17 05:05 08/13/17 05:05 08/12/17 08/13/17 08/14/17 05:59 05:59 05:59 Intake Total 3977 2390 Output Total 1250 3405 400 Balance 2727 -1015 -400 C-Reactive Protein 27.9 mg/L (<10.0) H 08/13/17 05:05 - Physical Exam General Appearance: alert, no apparent distress, obese EENT: pale conjunctiva Respiratory: lungs clear, No accessory muscle use Cardiac/Chest: regular rate, rhythm Extremities: No pedal edema Abdomen: soft, distended (slight), other (lap incisions healing well no erythema or drainge) Skin: No rash Neuro/Psych: alert, normal mood/affect, oriented x 3 - Time Spent With Patient Time Spent with Patient: greater than 35 minutes (care coordinated with Dr. Carrera) Time Spent with Patient: Greater than 35 minutes spent on this patients care, greater than 50% of time spent counseling, educating, and coordinating care regarding the above mentioned plan. ICD10 Worksheet Patient Problems: Problems Problem Status Onset Acute appendicitis Acute
--- NOTE | 2017-08-13 17:19 | ASMTCMCOM ---
CM Note CM Note Notes: Spoke w/RN, anticipate pt will dc home with support of . Per PT, pt independent with mobility. CM available for any changes. DC Plan: Independent Date Signed: 08/13/2017 05:18 PM Electronically Signed By:Esther Singh RN
[2017-08-13] MEDS: D5W 1/2 NS 1,000 ML IV SCH (18:28)
[2017-08-13] MEDS: HYDROmorphone HCL/NS 0.5 MG/ML SYR IVP PRN (21:37)
[2017-08-14] MEDS: KETOROLAC 15 MG/1 ML SDV IVP SCH ×5 (05:18→22:24)
[2017-08-14] MEDS: LEVOTHYROXINE 75 MCG TAB PO SCH (05:56)
[2017-08-14] MEDS: MEROPENEM 1 GM in NS 100 ML IV SCH ×3 (05:56→22:16)
[2017-08-14] MEDS: D5W 1/2 NS 1,000 ML IV SCH (05:56)
[2017-08-14 06:20] LABS: PLATELET COUNT 434 10^3/uL (150-400)
[2017-08-14] MEDS: LIOTHYRONINE SODIUM 5 MCG TAB PO SCH (08:15)
[2017-08-14] MEDS: SENNOSIDES/DOCUSATE SODIUM TAB PO SCH ×2 (08:16→21:30)
[2017-08-14] MEDS ORDERED: IOPAMIDOL (ISOVUE-300) 100 ML BTL ONE (14:48)
--- NOTE | 2017-08-14 14:52 | PCMIDPN ---
Assessment/Plan: Assessment: Small bowel obstruction query ileus verses postoperative infected collection. Repeat CT scan to happen today. Will compare the present study with the prior study and see if there are concerning changes. Meanwhile will continue the IV meropenem. Plan: 1. Continue IV meropenem. 2. Evaluate the results from the CT scan today. 08/14/17 14:50 Subjective: Patient is doing fairly well. She is frustrated that she needed to return to the hospital for her symptoms. She has had no further nausea or vomiting. Her stomach feels bloated but she is in no pain. She continues to have flatus but no bowel movement. Objective: Meropenem #2 Vital Signs Temp Pulse Resp BP Pulse Ox 36.6 C 78 18 138/74 H 90 L 08/14/17 14:40 08/14/17 14:40 08/14/17 14:40 08/14/17 14:40 08/14/17 14:40 Laboratory Results 08/14/17 05:00 08/14/17 05:00 08/13/17 08/14/17 08/15/17 05:59 05:59 05:59 Intake Total 2390 500 Output Total 3405 3600 500 Balance -1015 -3100 -500 C-Reactive Protein 27.9 mg/L (<10.0) H 08/13/17 05:05 - Physical Exam General Appearance: WD/WN, alert, no apparent distress, non-toxic Respiratory: lungs clear, normal breath sounds, No respiratory distress Cardiac/Chest: regular rate, rhythm, No tachycardia Abdomen: non-tender, soft, distended ICD10 Worksheet Patient Problems: Problems Problem Status Onset Acute appendicitis Acute
--- NOTE | 2017-08-14 18:30 | SOAPPROG ---
SOAP Progress Note Assessment/Plan: Assessment: s/p lap appy for perforation re admit for ileus CT scan with improvement in small bowel dilation and fluid collections smaller S: Passing flatus O: Sitting up Decreased lung sounds in bases regular rate bs present Still distended but softer Incisions cdi Plan: 08/14/17 18:28 Objective: Vital Signs Temp Pulse Resp BP Pulse Ox 36.6 C 78 18 138/74 H 90 L 08/14/17 14:40 08/14/17 14:40 08/14/17 14:40 08/14/17 14:40 08/14/17 14:40 Laboratory Results 08/14/17 05:00 08/14/17 05:00 08/13/17 08/14/17 08/15/17 05:59 05:59 05:59 Intake Total 2390 500 300 Output Total 3405 3600 2663 Balance -1015 -3100 -1500 ICD10 Worksheet Patient Problems: Problems Problem Status Onset Acute appendicitis Acute
[2017-08-15] MEDS: HYDROmorphone HCL/NS 0.5 MG/ML SYR IVP PRN (00:39)
[2017-08-15] MEDS: KETOROLAC 15 MG/1 ML SDV IVP SCH ×2 (06:23→13:33)
[2017-08-15] MEDS: MEROPENEM 1 GM in NS 100 ML IV SCH ×2 (06:30→14:12)
[2017-08-15] MEDS: LEVOTHYROXINE 75 MCG TAB PO SCH (06:31)
[2017-08-15 08:06] VITALS: BP 129/67
--- NOTE | 2017-08-15 09:14 | SOAPPROG ---
SOAP Progress Note Assessment/Plan: Assessment/Plan: 71yo F s/p lap appy and partial cecectomy for perforated appendicitis. Admitted with SBO IV antibiotics - tolerating meropenem - appreciate ID input for home antibiotics CT abd yesterday with improvement +Return of bowel function Regular diet Dispo: poss home today. Seen c Dr. Carrera. S: distension resolved. no pain. having loose bowel movement O: sitting upright in chair, comfortable, NAD No increased WOB Incisions CDI Dressings in place + bowel sounds, soft, nondistended, nontender. Objective: Vital Signs Temp Pulse Resp BP Pulse Ox 36.9 C 85 18 129/67 H 86 L 08/15/17 08:00 08/15/17 08:00 08/15/17 08:00 08/15/17 08:00 08/15/17 08:00 Laboratory Results 08/14/17 05:00 08/14/17 05:00 08/14/17 08/15/17 08/16/17 05:59 05:59 05:59 Intake Total 500 300 Output Total 3600 2150 Balance -3100 -1850 ICD10 Worksheet Patient Problems: Problems Problem Status Onset Acute appendicitis Acute
[2017-08-15] MEDS: LIOTHYRONINE SODIUM 5 MCG TAB PO SCH (09:21)
[2017-08-15] MEDS: SENNOSIDES/DOCUSATE SODIUM TAB PO SCH (09:25)
--- NOTE | 2017-08-15 14:19 | PCMIDPN ---
Assessment/Plan: Perforated Cecum/peritonitis with cultures showing PsA and Ecoli s/p lap cecectomy 08/05/[address] and abdominal symptoms. --dc off antibiotics, discussed signs of infection with patient at bedside including fever, increased abdominal pain, markedly worsening malaise, planned close follow-up to monitor --follow up w me Friday meds meropenem 1gm IV q8, #3, Approx 6-7 days therapy directed at PsA Microbiology 08/05/17 10:52 Other - Other Anaerobic Culture - Final Pseudomonas Species - Morgan-S Escherichia Coli Morgan-S Subjective: Feeling better, wants to go home, feels fatigued due to poor sleep. Objective: Vital Signs Temp Pulse Resp BP Pulse Ox 36.9 C 85 18 129/67 H 86 L 08/15/17 08:00 08/15/17 08:00 08/15/17 08:00 08/15/17 08:00 08/15/17 08:00 Laboratory Results 08/14/17 05:00 08/14/17 05:00 08/14/17 08/15/17 08/16/17 05:59 05:59 05:59 Intake Total 500 300 Output Total 3600 2150 Balance -3100 -1850 C-Reactive Protein 27.9 mg/L (<10.0) H 08/13/17 05:05 - Physical Exam Respiratory: lungs clear, No accessory muscle use Neck: supple Cardiac/Chest: regular rate, rhythm Abdomen: normal bowel sounds (to hyperactive), non-tender, soft, distended ( Mild , improved from 2 days ago) Neuro/Psych: alert, normal mood/affect, oriented x 3 - Time Spent With Patient Time Spent with Patient: greater than 25 minutes (Case discussed with Dr. Bethany Carrera) Time Spent with Patient: Greater than 25 minutes spent on this patients care, greater than 50% of time spent counseling, educating, and coordinating care regarding the above mentioned plan. ICD10 Worksheet Patient Problems: Problems Problem Status Onset Acute appendicitis Acute
--- NOTE | 2017-08-15 15:26 | GDS ---
[f rep st] DISCHARGE SUMMARY ADMITTING DIAGNOSIS: Small-bowel obstruction. SECONDARY DIAGNOSES: Recent ruptured appendicitis, hypothyroidism. REASON FOR HOSPITALIZATION: The patient is a 71-year-old woman who was recently admitted and underwe nt laparoscopic cecectomy for ruptured appendicitis. She was discharged home with oral antibiotics. She presented to the emergency room on 08/10/2017 complaining of abdominal pain, nausea and vomiting . A CT scan performed showed small bowel obstruction. She was admitted for bowel rest, IV fluids an d observation. HOSPITAL COURSE: She was continued on IV antibiotics through her hospital stay. Her symptoms improv ed with bowel rest and IV fluids. Her pain was well controlled with oral anti-inflammatories. She w as seen by Infectious Disease on 08/12/2017, as she was having difficulty tolerating the IV Flagyl. Her IV antibiotics were switched to IV meropenem. She had leukocytosis on admission, which was follo wed and decreased through her hospital stay. On 08/14/2017, she had an abdominal CT performed which showed improvement of the fluid collections as well as improvement in distention of the small bowel. Her HERANNDEZ drain was removed during this hospitalization. By 08/15/2017, she had return of bowel functio n. She was tolerating a regular diet and had completed her course of antibiotics. She was ready for discharge home. CONDITION: Discharged home in stable condition. Pain controlled with oral pain medication toleratin g regular diet, ambulating independently. DISCHARGE MEDICATIONS: She will resume home medications, see EMR for further details. Does not need to go home with oral antibiotics. DISCHARGE INSTRUCTIONS AND FOLLOWUP: She will avoid heavy lifting, pushing or pulling x1 more week. May shower. Diet as tolerated. She will follow up with Dr. Barker of Infectious Disease next week and will follow up with Dr. Carrera or myself the following week. Call sooner with worsening symptoms, questions or concerns. /[id number]/MODL
== END 2017-08-15 16:17 | disposition home or self-care (01) | DRG 390 ==
LOC: F3E 03:54
PROVIDERS: ADMIT Surgery; ATTEND Surgery
DX: K91.30 Postprocedural intestinal obstruction, unspecified as to partial versus complete (principal); E03.9 Hypothyroidism, unspecified; Z89.429 Acquired absence of other toe(s), unspecified side
CPT/HCPCS: 96365; 97161-GP; G8978-GP-CH; G8979-GP-CH; G8980-GP-CH; J1170; J1885; J1956; J2185; J2405; J3480; Q9967